=== PATIENT | female | born 1965 | race Caucasian/White ===

== ENCOUNTER → 2019-11-01 | Outpatient (CLI) | payer BC ==
[~2019-11-01] MED LIST: BACL10TA PO; CARV25TA2 PO; CLON0.1T PO; GADOTERATE 7.5 MMOL/15ML VIAL. IVP ONE; HYDR-2867 PO; LISI2.5T PO; ZOLP5TAB PO; [UNRECOGNIZED DRUG - CODE] PO
--- NOTE | 2019-11-01 14:49 | KCIC ---
MRI Brain with and without contrast History: Multiple sclerosis, worsening symptoms Technique: Multiplanar, multi sequential pre and postcontrast MR imaging was performed of the brain. Comparison: None Findings: There is multifocal moderate T2 and FLAIR hyperintense signal abnormality of the supratentorial parenchyma bilaterally. Findings are greatest of the frontoparietal lobes but also involvement of the temporal and occipital lobes, minimal involvement of the basal ganglia and also mild signal abnormality of the bilateral rose. Some foci have a perpendicular orientation relative to the lateral ventricles. There is some involvement of the subcortical U fibrous such as of the left frontal parietal lobes. There is no abnormal intracranial enhancement. Some foci are associated with T1 hypointense signal most notable of the left periatrial lesions. There is no midline shift or extra-axial fluid collection. Ventricular size and cerebral volume are considered within normal limits. There is preservation of the major arterial intracranial flow-voids at the skull base. There is minimal bilateral ethmoid air cell mucosal thickening. Mastoid air cells are aerated. There is preservation of marrow signal of the clivus. There is no abnormality of pineal gland or pituitary gland. Cerebellar tonsils are normal in location. There is a focus of increased T1 and T2 signal of the left clivus likely a hemangioma. Impression: 1. There is evidence of multiple sclerosis, no abnormal intracranial enhancement. Electronically signed by: Matt Tyler MD (11/01/2019 2:46 PM) [id number]
== END | disposition home or self-care (01) ==
LOC: KCIC MRI 09:04
PROVIDERS: ATTEND Psychiatry & Neurology Neurology with Special Qualifications in Child Neurology
DX: G35 Multiple sclerosis (principal)
CPT/HCPCS: 70553; A9575

== ENCOUNTER → 2021-11-26 | Outpatient (CLI) | payer BC ==
[~2021-11-26] MED LIST changes: -LISI2.5T PO; +LISI2.5T12 PO
--- NOTE | 2021-11-26 14:58 | KCIC ---
MRI BRAIN WO+W Date: 11/26/2021 12:32 PM Indication: MULTIPLE SCLEROSIS. Recent flareup of MS symptoms. Comparison: 11/01/2019. Technique: Multiplanar multisequence MRI of the brain was performed with and without intravenous cont rast using the standard protocol. 14 cc Clariscan contrast was administered intravenously during the exam. Findings: There are greater than 20 foci of abnormal T2/FLAIR hyperintense signal in the periventricular, subco rtical, and pericallosal white matter with areas of confluence. 4-5 of these foci demonstrate conflue nt T1 hypointensity. There is some abnormal signal in the rose. No advanced for age cerebral atrophy. No new lesions. No postcontrast enhancement. No acute infarct. No acute or chronic hemorrhage. The ventricles are normal in size and configuration without hydrocephalus. No abnormal enhancement. The scalp and calvarium are normal. The pituitary and sella are normal. No Chiari malformation. The v isualized upper cervical spine is normal. The visualized orbits and globes are normal. The visualized paranasal sinuses are clear. The mastoid air cells are clear. Normal flow voids within the vertebral, basilar, and internal carotid arteries indicating patency. IMPRESSION: Greater than 20 foci of abnormal signal in the deep white matter with areas of confluence, consistent with patient's history of multiple sclerosis. No new lesions or evidence of active demyelination Electronically signed by: Matt Gomes MD (11/26/2021 2:56 PM) [id number]
== END ==
LOC: KCIC MRI 12:15
PROVIDERS: ATTEND Psychiatry & Neurology Neurology with Special Qualifications in Child Neurology
DX: R90.82 White matter disease, unspecified (principal); G35 Multiple sclerosis
CPT/HCPCS: 70553; A9575